=== PATIENT | female | born 1975 ===

== ENCOUNTER 2016-09-21 04:11 | Emergency (ER) | payer MEDICAID ==
[2016-09-21 04:44] LABS: PH,URINE 6.5 (5.0-8.0); SPECIFIC GRAVITY 1.015 (1.001-1.030); URINE APPEARANCE CLEAR; URINE BILIRUBIN NEGATIVE (NEGATIVE); URINE BLOOD TRACE (NEGATIVE); URINE COLOR STRAW; URINE GLUCOSE (UA) NEGATIVE (NEGATIVE); URINE LEUKOCYTE ESTERASE 2+ (NEGATIVE); URINE NITRITE NEGATIVE (NEGATIVE); URINE PROTEIN TRACE (NEGATIVE); URINE UROBILINOGEN NORMAL (0-1 mg/dl)
[2016-09-21 04:45] LABS: HCG,QUALITATIVE URINE NEGATIVE
[2016-09-21 04:49] LABS: URINE EPITHELIAL CELLS FEW /hpf; URINE RBC 0-1 /hpf; URINE WBC 30-40 /hpf
[2016-09-21 04:50] LABS: URINE BACTERIA 1+
== END 2016-09-21 05:29 | disposition home or self-care (01) ==
LOC: ED 04:11
DX: N39.0 Urinary tract infection, site not specified (principal)